=== PATIENT | female | born 1985 | race American Indian/Alaskan Native ===

== ENCOUNTER 2018-02-27 07:56 | Emergency (ER) | payer OTHER ==
[2018-02-27] MEDS ORDERED: NORCO 5/325 PO ONE (08:55)
[2018-02-27] MEDS ORDERED: NORCO 5/325 ONE (08:57)
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
--- NOTE | 2018-02-27 09:33 | XRay Report ---
Left knee 2 views: History: Knee pain. Findings: No bony or articular abnormality. No fracture dislocation or soft tissue calcification. Impression: Essentially negative left knee.
[2018-02-27 11:56] VITALS: BP 99/58
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
== END 2018-02-27 13:09 | disposition home or self-care (01) ==
LOC: ED 07:56
DX: S16.1XXA Strain of muscle, fascia and tendon at neck level, initial encounter (principal); S39.012A Strain of muscle, fascia and tendon of lower back, initial encounter; S83.92XA Sprain of unspecified site of left knee, initial encounter; V49.09XA Driver injured in collision with other motor vehicles in nontraffic accident, initial encounter; Y93.89 Activity, other specified; Y99.8 Other external cause status; Y92.488 Other paved roadways as the place of occurrence of the external cause
CPT/HCPCS: 72040; 72100